=== PATIENT | female | born 1950 | race Hispanic/Latino ===

== ENCOUNTER 2022-08-06 10:00 | Outpatient (RCR) | payer MEDICARE ==
[~2022-08-06 10:00] MED LIST: AMITRIPTYLINE H25 MG PO; CYMBALTA60 MG PO; ETODOLAC500 MG PO; NORCO 5-325 TA1 EACH PO; TIZANIDINE HCL4 MG PO; TOPIRAMATE50 MG PO; VYTORIN 10-401 EACH PO
== END 2022-08-10 ==
LOC: PT 10:00
PROVIDERS: ATTEND Physician Assistant
DX: M75.42 Impingement syndrome of left shoulder (principal)

== ENCOUNTER 2022-08-13 09:55 | Outpatient (RCR) | payer BC, MEDICARE | END 2022-09-07 | LOC: PT 09:55 | PROVIDERS: ATTEND Physician Assistant | DX: M75.42 Impingement syndrome of left shoulder (principal); M75.41 Impingement syndrome of right shoulder; M47.812 Spondylosis without myelopathy or radiculopathy, cervical region; M62.81 Muscle weakness (generalized) ==

== ENCOUNTER 2023-05-09 08:00 | Outpatient (RCR) | payer MEDICARE, BC ==
[~2023-05-09 08:00] MED LIST changes: +ALENDRONATE SOD70 MG PO; +ALIGN4 MG PO; +CITRACAL + BON1 EACH PO; +CLONAZEPAM1 MG PO; +ESCITALOPRAM OX10 MG PO; +IBGARD90 MG PO; +MELOXICAM7.5 MG PO; +OMEGA XL PO; +PRILOSEC OTC20 MG PO; +ULTRAM 50MG50 MG PO; +VYTORIN 10-801 EACH PO
== END 2023-05-10 ==
LOC: PT 08:00
PROVIDERS: ATTEND Physician Assistant
DX: Z47.89 Encounter for other orthopedic aftercare (principal); M75.121 Complete rotator cuff tear or rupture of right shoulder, not specified as traumatic